=== PATIENT | female | born 1975 ===

== ENCOUNTER 2022-03-14 05:33 | Day surgery (SDC) | payer OTHER ==
[~2022-03-14] VITALS: Ht 167.6 cm; Wt 77.1 kg
[2022-03-14] MEDS ORDERED: MORGIDOX100 MG PO (14:20)
[2022-03-14] MEDS ORDERED: IBU600 MG PO (14:20)
== END 2022-03-14 19:00 | disposition home or self-care (01) ==
LOC: CIR.AMB 05:33
PROVIDERS: ATTEND Obstetrics & Gynecology
DX: N92.1 Excessive and frequent menstruation with irregular cycle (principal); N84.1 Polyp of cervix uteri; R19.00 Intra-abdominal and pelvic swelling, mass and lump, unspecified site; D25.1 Intramural leiomyoma of uterus; Z88.1 Allergy status to other antibiotic agents; Z20.822 Contact with and (suspected) exposure to COVID-19